=== PATIENT | female | born 2005 | race Caucasian/White ===

== ENCOUNTER 2025-06-18 14:39 | Outpatient (CLI) | payer BC, SELFPAY ==
--- NOTE | ~2025-06-18 | US_ITS ---
EXAMINATION: US OB <= 14 weeks fetus DATE: 06/18/2025 14:52 INDICATION: Uncertain dating of during first trimester TECHNIQUE: Real-time pelvic ultrasound utilizing both a transvaginal and transabdominal probe was performed. The interpreting radiologist was not present for the study. COMPARISON: None. FINDINGS: The uterus measures 9.9 x 6.8 x 8.0 cm. There is an intrauterine gestational sac. A yolk sac and pole are identified. The crown rump length measures 2.1 cm, which correlates with an estimated gestational age of 8 weeks and 5 days. heart motion is identified measuring 169 beats per minute (bpm) by M-mode Doppler. The bilateral ovaries are not visualized. There is no free fluid in the pelvis. IMPRESSION: 1. Single living fetus with heart rate of 169 bpm. 2. Gestational age by ultrasound of 8 weeks 5 day(s) +/- 5 day(s) with ultrasound estimated date of delivery (EUFEMIA) of 01/23/2026. Reviewed, dictated and finalized at location A. IMPRESSION: 1. Single living fetus with heart rate of 169 bpm. 2. Gestational age by ultrasound of 8 weeks 5 day(s) +/- 5 day(s) with ultraso und estimated date of delivery (EUFEMIA) of 01/23/2026.
== END 2025-06-18 14:40 | disposition home or self-care (01) ==
LOC: MICIMG 14:40
DX: Z36.87 Encounter for antenatal screening for uncertain dates (principal); Z3A.08 8 weeks gestation of pregnancy
CPT/HCPCS: 76801

== ENCOUNTER 2025-09-22 21:42 | Outpatient (CLI) | payer BC, SELFPAY ==
--- NOTE | 2025-09-22 21:42 | PC.NURSE ---
Pt arrives to unit with leaking started at 1900.
[2025-09-22 22:06] VITALS: BP 113/80; PULSE 89; RESP 18; TEMP 37.2; O2SAT 99
[2025-09-22 22:15] VITALS: BP 111/87; PULSE 92; O2SAT 100
--- NOTE | 2025-09-22 22:28 | PC.NURSE ---
Called Dr. Swenson, update on pt, leaking at 1900, intercourse prior to leaking, ROM plus negative, cramping, heart tones dopple, and two cramping on TOCO. Orders received to discharge pt with instructions to keep next scheduled appointment and when to return to the unit.
[2025-09-22 22:30] VITALS: BP 111/70; PULSE 84; O2SAT 99
--- OUTSIDE RECORDS SUMMARY | 2025-09-22 22:34 | XMS_ITS | Encounter Summary ---
Author Organization [facility] Address [address] [place] [address] Care Team Providers Care Self Pay Representative Name Role Phone Unavailable Primary Care Provider Unavailabl e Reason for Visit * Reason Onset Date Comments Appointment 09/22/2025 Encounter Details Date Type Department Care Team (Late st Contact Info) Description 09/22/[address] [address] Kaylene De La Fuente Appointment Social History Tobacco Use Types Packs/Day Years Used Date Smoking Tobacco: Never Assessed Estimated Date of Delivery Comme nts Yes 01/23/2026 Based on Ultraso und Sex and Gender Information Value Date Recorded Sex Assigned at Not on file Legal Sex Female 5:43 AM MECHANICAL RESEARCH ENGINEER Gender Identity Not on file Sexual Orientation Not on file documented as of this encounter Miscellaneous Notes * Telephone Encounter - Kaylene De La Fuente - 09/22/2025 10:45 AM CST Patient called, scheduled echo 10/12 @ 1:45 pm. Verified insurance and demographics. Instructions sent via [employer]. ANICAL RESEARCH ENGINEER documented in this encounter Plan of Treatment Upcoming Encounters Date Type Department Care Team (Late st Contact Info) Description 10/09/2025 2:30 PM MECHANICAL RESEARCH ENGINEER Appointment [facility] [address] [place], [place] [phone] 10/12/2025 1:45 PM MECHANICAL RESEARCH ENGINEER Appointment [address] [address] Maryann Swenson MD [address] [facility] [address] [place] [address] 10/12/2025 1:45 PM MECHANICAL RESEARCH ENGINEER Appointment [address] [address] documented as of this encounter Visit Diagnoses Not on filedocumented in this encounter
--- OUTSIDE RECORDS SUMMARY | 2025-09-22 22:34 | XMS_ITS | Encounter Summary ---
Author Organization [facility] Address [address] [facility] [place] [address] Care Team Providers Care Telecommunications Officer Name Role Phone Unavailable Primary Care Provider Unavailabl e Reason for Visit * Reason Onset Date Comments Future Appointment 09/21/2025 Encounter Details Date Type Department Care Team (Late st Contact Info) Description 09/21/[address] [address] Rosy Alberto RN Future Appointment Social History Tobacco Use Types Packs/Day Years Used Date Smoking Tobacco: Never Assessed Estimated Date of Delivery Comme nts Yes 01/23/2026 Based on Ultraso und Sex and Gender Information Value Date Recorded Sex Assigned at Not on file Legal Sex Female 5:43 AM WHITE KID BUFFER Gender Identity Not on file Sexual Orientation Not on file documented as of this encounter Miscellaneous Notes * Telephone Encounter - Rosy Alberto RN - 09/21/2025 2:26 PM CST Attempted to reach patient to schedule appointment for echocardiogram at [facility]. There was no answer. Will try again at a later date. E KID BUFFER documented in this encounter Plan of Treatment Upcoming Encounters Date Type Department Care Team (Late st Contact Info) Description 10/09/2025 2:30 PM WHITE KID BUFFER Appointment [facility] [address] [place] [id number] 10/12/2025 1:45 PM WHITE KID BUFFER Appointment [address] [address] Maryann Swenson MD [address] [facility] [address] [place] [address] 10/12/2025 1:45 PM WHITE KID BUFFER Appointment [address] [address] documented as of this encounter Visit Diagnoses Not on filedocumented in this encounter
--- OUTSIDE RECORDS SUMMARY | 2025-09-22 22:34 | XMS_ITS | Clinical Summary ---
Author Organization [facility] Address [address] [place] [address] Care Team Providers Care Special Crimes Investigator Name Role Phone Unavailable Primary Care Provider Unavailabl e Source Comments [facility],non-owned Affiliates and Associated Physician Practices is amultiple site organization consisting of ambulatory clinics and hospital sitesin [place], [place], [place] and [place]. This disclosure is being madepursuant to the Care Everywhere program and may not contain all information available regarding this patient. Last updated 18.[facility] Allergies No known active allergies Encounters Date Type Department Care Team Description 09/22/2025 Telephone [facility] [place] [address] [place] [phone] Kaylene De La Fuente Appointment 09/21/[address] [address] Rosy Alberto RN Future Appointment 09/07/2025 10:21 AM DIRECTOR FIXED INCOME - 09/07/2025 11:59 PM DIRECTOR FIXED INCOME Hospital Encounter formerly [facility] [address] [place] [phone] Julian Franklin MD Discharge Disposition: Home or Self Care from Last 3 Months Social History Tobacco Use Types Packs/Day Years Used Date Smoking Tobacco: Never Assessed Estimated Date of Delivery Comme nts Yes 01/23/2026 Based on Ultraso und Sex and Gender Information Value Date Recorded Sex Assigned at Not on file Legal Sex Female 5:43 AM DIRECTOR FIXED INCOME Gender Identity Not on file Sexual Orientation Not on file Plan of Treatment Upcoming Encounters Date Type Department Care Team (Late st Contact Info) Description 10/09/2025 2:30 PM DIRECTOR FIXED INCOME Appointment [facility] [address] [place] [address] 10/12/2025 1:45 PM DIRECTOR FIXED INCOME Appointment [facility] [place] [address] [place] [address] Maryann Swenson MD [address] [facility] [address] [place] [address] 10/12/2025 1:45 PM DIRECTOR FIXED INCOME Appointment [facility] [place] [facility] [place] [address] Health Maintenance Due Date Last Done Comments HPV VACCINE (1 - 3-dose series) 12/28/2019 CHLAMYDIA/GONORRHEA SCREENING 2020 MENINGOCOCCAL (Group B) VACCINE SHARED DECISION-MAKING (1 of 2 - Standard) 2020 HEPATITIS C SCREENING 12/23/2022 DTAP/TDAP/TD VACCINES (1 - Tdap) 12/28/2023 HEPATITIS B VACCINE (1 of 3 - 19+ 3-dose series) 12/28/2023 DEPRESSION SCREENING 10/22/2024 COVID-19 VACCINE (1 - 2024- season) 2025 INFLUENZA VACCINE (#1) 2025 3, 08/06/2018, 07/13/2017, Additional history exists OB-ONE HOUR GLUCOSE 10/17/2025 OB-TDAP CURRENT 10/24/2025 12/31/2015 ZOSTER VACCINE (1 of 2) 2054 HIV SCREENING Completed 07/10/2025 HIB VACCINE Aged Out No longer eligi ble based on patient's age to complete this topic MENINGOCOCCAL GROUPS A/C/Y/W VACCINE Aged Out No longer eligible based on patient's age to complete this topic PNEUMOCOCCAL VACCINE Aged Out No long er eligible based on patient's age to complete this topic Respiratory Syncytial Virus (RSV) Vaccine Pt: or over 60 yrs (No Doses Required) Completed Procedures Procedure Name Priority Date/Time Associated Diagnosis Comments SONOGRAM - COMPLETE Routine 09/07/2025 1 0:30 AM DIRECTOR FIXED INCOME Encounter for anatomic survey (HCC) Family history of congenital heart defect Encounter for supervision of normal first in second trimester ([facility]) from Last 3 Months Results * Sonogram - Complete (09/07/2025 10:30 AM DIRECTOR FIXED INCOME) Linked Results Indication ======== anatomy evaluation Family history of congenital heart defect FOB was born with hole in heart Depression complicating Maternal obesity complicating , class 1 (BMI 30.0 - 34.9) History ====== OB History 1. Para 0 Maternal Assessment Physical Exam Height 170 cm, 5 ft 7 in. Weight 102 kg, 225 lb. Initial weight 100 kg, 221 lb. BMI 35.24 kg/m . Initial BMI 34.61 kg/m . Weight gain 2 kg, 4 lb Method ====== Transabdominal and transvaginal ultrasound examination. View: Suboptimal view: limited by position ========= Francis . Number of fetuses: 1 Dating ====== Date Details Gest. age EUFEMIA Stated EUFEMIA 20 w + 2 d 01/23/2026 U/S 09/07/2025 based upon AC, BPD, Femur, HC 20 w + 3 d 01/22/2026 Assigned dating based on stated EUFEMIA, selected on 09/07/2025 20 w + 2 d 01/23/2026 General Evaluation Cardiac activity present. FHR 135 bpm. Presentation: breech Placenta: Placental site: posterior. Placental vayi-ch-qjmtazql os distance 21 mm. No previa seen Umbilical cord: Cord vessels: 3 vessel cord. Insertion site: normal insertion Amniotic fluid: Amount of AF: normal. MVP 4.7 cm Biometry BPD 46.2 mm 20w 0d 36% Hadlock HC 171.5 mm 19w 5d 19% Hadlock Cerebellum tr 20.7 mm 51% [place] Nuchal fold 3.8 mm AC 160.2 mm 21w 1d 72% Hadlock Femur 33.7 mm 20w 4d 52% Hadlock Humerus 32.4 mm 20w 6d 74% Maegan HC / AC 1.07 -/- 5% Hadlock Weight Calculation: EFW 373 g 69% Hadlock EFW (lb,oz) 0 lb 13 oz EFW by Hadlock ([id number]) Head / Face / Neck Biometry: CM 4.9 mm 44% Nicolaides appropriate Growth Overview Exam date GA BPD (mm) HC (mm) AC (mm) FL (mm) HL (mm) EFW (g) 09/07/2025 20w 2d 46.2 36% 171.5 19% 160.2 72% 33.7 52% 32.4 74% 373 69% Anatomy The following structures appear normal: Head / Neck Cranium. Lateral ventricles. Choroid plexus. Midline falx. Cavum septi pellucidi. Cerebellum. Cisterna magna. Thalami. Nuchal fold. Face Lips. Profile. Nose. Nasal bone. Orbits. Heart / Thorax Aortic arch view. Bicaval view. Ductal arch view. Abdomen Cord insertion. Stomach. Kidneys. Bladder. Bowel. Genitals. Spine Cervical spine. Thoracic spine. Lumbar spine. Sacral spine. Extremities / Skeleton Arms. Hands. Right leg. The following structures could not be adequately visualized: Heart / Thorax 4-chamber view. RVOT view. LVOT view. 3-vessel view. 9-[id number]-irgnync view. Situs. Great vessels. Right lung. Left lung. Diaphragm. Extremities / Skeleton Feet. Left leg. Maternal Structures Cervix reassuring Approach - Transvaginal: Cervical length 4.55 cm Funneling absent Cervical cerclage absent Right Ovary Not visualized Appearance: Adnexa appears normal Left Ovary Normal Impression ========= Single live intrauterine at 20w 2d The size is appropriate. The amniotic fluid volume is normal. The transvaginal cervical length is reassuring. Posterior placenta, not a previa. No major malformations were seen within the limitations of ultrasound. Comment ======== ultrasound alone cannot detect all structural, genetic, or functional , placental, or maternal abnormalities Follow-up ======== Follow up ultrasound in 4 weeks for growth and to complete anatomic survey echo order placed due to FOB's history of heart defect, as ordered by primary OB physician. Coding ====== Diagnoses O99.212, E66.811: Obesity complicating , class 1 (BMI 30.0 - 34.9) O99.342, F32.A: Other mental disorders complicating , childbirth, Depression O35.2XX0: Maternal care for (suspected) hereditary disease in fetus, not applicable or unspecified Z36.3: Encounter for screening for malformations Procedures 45100: US Preg Uterus Detailed 38796: US Preg Uterus Transvaginal Source Audio PACS Anatomical Region Laterality Modality Other 09/07/2025 10:3 0 AM DIRECTOR FIXED INCOME us Maryann Swenson MD [facility] ORDER[facility] Edited Resu lt - Final from Last 3 Months Insurance [facility]
--- OUTSIDE RECORDS SUMMARY | 2025-09-22 22:34 | XMS_ITS | Clinical Summary ---
Author Organization [facility] Address [address] [place] [phone] Phone Care Team Providers Care Grinding Wheel Facer Name Role Phone Shelley Perez MD Primary Care Provider [phone] Allergies No known active allergies Medications HYDROcodone-acet aminophen (HYCET) 2.5-108 mg/5 mL Solution Take 6.6 mL by mouth every 4 hours as needed for Pain, Moderate. 350 mL 0 12/18/2013 Active Active Problems No known active problems Social History Tobacco Use Types Packs/Day Years Used Date Smoking Tobacco: Never Assessed Comments Unknown Sex and Gender Information Value Date Recorded Sex Assigned at Not on file Legal Sex Female 11:17 AM DRILLING ENGINEERING MANAGER Gender Identity Not on file Sexual Orientation Not on file Last Filed Vital Signs Vital Sign Reading Time Taken Comments Blood Pressure 101/70 12/18/2013 6:10 PM DRILLING ENGINEERING MANAGER Pulse 99 12/18/2013 6:10 PM DRILLING ENGINEERING MANAGER Temperature 37.4 C (99.3 F) 12/18/2013 6:10 PM DRILLING ENGINEERING MANAGER Respiratory Rate 18 12/18/2013 6:10 PM DRILLING ENGINEERING MANAGER Oxygen Saturation 98% 12/18/2013 6:10 PM DRILLING ENGINEERING MANAGER Inhaled Oxygen Concentration - - Weight 33.1 kg (72 lb 15.6 oz) 12/18/2013 11:39 AM DRILLING ENGINEERING MANAGER Height - - Body Mass Index - - Plan of Treatment Health Maintenance Due Date Last Done Comments CHLAMYDIA SCREENING (ANNUAL) 11-24 YEARS 12/28/2015 HPV VACCINES (1 - 3-dose series) 12/28/2019 DTAP/TDAP/TD VACCINES (1 - Tdap) 12/28/2023 HEPATITIS B VACCINES (1 of 3 - 19+ 3-dose series) 05/2024 INFLUENZA VACCINE (#1) 2025 Insurance Advance Directives For more information, please contact: [phone] * Full Code (Latest Code Status on File) Date Activated Date Inactivated Comments 12/18/2013 12:05 PM 12/18/2013 8:23 PM Care Teams Grinding Wheel Facer Relationship Specialty Start Date End Date Shelley Perez MD PCP - General Pediatrics 12/16/13
--- OUTSIDE RECORDS SUMMARY | 2025-09-22 22:35 | XMS_ITS | Clinical Summary ---
Author Organization [facility] Address [address] [place] [address] Phone Care Team Providers Care Project Management Director Name Role Phone Maryann Swenson MD Unavailable [phone] Allergies No known active allergies Medications ondansetron (ZOFRAN) 4 MG Tablet Take 1-2 Tablets by mouth every 8 hours as needed for Nausea - 1st line. 10 Tablet 06/08/2025 Active Active Problems Estimated Date of Delivery Comme nts Yes 12/31/2025 No known active problems Encounters Date Type Department Care Team Description 07/10/2025 Travel from Last 3 Months Immunizations Immunization Administration Dates Next Due DTAP-IPV 06/01/2010 DTAP/HEPB/IPV Vaccine 07/13/2005,04/28/2005,02/19 Hepatitis A Vaccine,unspecified Formulation 05/22,03/08/2007 Hib Vaccine,unspecified Formulation 04/28/2005,0 02/28/2005 Human Papillomavirus (HPV) 9-valent Vaccine 06/23,12/31/2015 Influenza Vaccine Nasal 07/15/2013,09/21/2011 Influenza Vaccine, Quadrivalent, PF 07/19/2023,1 ,07/13/2017 MMRV 06/01/2010,02/09/2006 Meningococcal ACYW TT IM Vaccine 07/19/2023 Meningococcal MCV4O 12/31/2015 Pneumococcal Vaccine Peds - 7 Valent 07/13/2005, 04/28/2005,02/28/2005 TDAP Vaccine 12/31/2015 Social History Tobacco Use Types Packs/Day Years Used Date Smoking Tobacco: Never Smokeless Tobacco: Never Tobacco Cessation:Counseling Given: Not Answered Alcohol Use Standard Drinks/Week Comments Never 0 (1 standard drink = 0.6 oz pur e alcohol) AUDIT-C Answer Date Recorded Frequency of Alcohol Consumption Never 01/01/2019 Average Number of Drinks Not on file 019 Frequency of Binge Drinking Not on file 12/20 Estimated Date of Delivery Comme nts Yes 12/31/2025 Sex and Gender Information Value Date Recorded Sex Assigned at Not on file Legal Sex Female 7:07 PM CDT Gender Identity Not on file Sexual Orientation Not on file Last Filed Vital Signs Vital Sign Reading Time Taken Comments Blood Pressure 120/78 06/13/2025 8:34 AM CDT Pulse 80 06/13/2025 8:34 AM CDT Temperature 36.5 C (97.7 F) 06/13/2025 6:42 AM CDT Respiratory Rate 16 06/13/2025 6:42 AM CDT Oxygen Saturation 100% 06/13/2025 6:42 AM CDT Inhaled Oxygen Concentration - - Weight 101.2 kg (223 lb 1.7 oz) 06/13/2025 6:42 AM CDT Height 170.2 cm (5' 7) 06/13/2025 6:42 AM CDT Body Mass Index 34.94 06/13/2025 6:42 AM CDT Plan of Treatment Health Maintenance Due Date Last Done Comments Meningococcal B Immunization (1 of 2 - Standard) 2020 Influenza Immunization (#1) 06/22/202506/23, 08/06/2018, 07/13/2017, Additional history exists SARS-COV-2 Immunization ( - season) 2025 Respiratory Syncytial Virus (RSV) Immunization (Adult) (1 - Risk 1-dose series) 11/05/2025 DTaP/Tdap/Td Immunization (6 - Td or Tdap) 12/30/2025 12/31/2015, 06/01/2010, 07/13/2005, Additional history exists Hepatitis C Virus (HCV) Screening 07/10/2026 07/10/2025 Hepatitis B Immunization Completed 005, 04/28/2005, 02/28/2005 Pneumococcal Immunization Combined Aged Out 07/13/2005, 04/28/2005, 02/28/2005 No longer eligible based on patient's age to complete this topic Hepatitis A Immunization Discontinued 06/01/2010, 02/19 Measles Mumps Rubella (MMR) Immunization Discontinued 06/01/2010, 02/09/2006 Polio (IPV) Immunization Discontinued 010, 07/13/2005, 04/28/2005, Additional history exists Varicella Immunization Completed 06/01/2010, 2005 TdaP Immunization Discontinued 12/31/2015 Human Papillomavirus (HPV) Immunization Completed 07/13/2017, 12/31/2015 Meningococcal Immunization (ACWY) Completed 07/19/2023, 12/31/2015 Rotavirus Immunization Aged Out No lo nger eligible based on patient's age to complete this topic Procedures Procedure Name Priority Date/Time Associated Diagnosis Comments CBC WITH AUTO DIFFERENTIAL Routine 07/10/2025 3:28 PM CDT Encounter for screening of mother TYPE & SCREEN (CROSSMATCH CONVERTIBLE) Routine 07/10/2025 3:28 PM CDT Encounter for screening of mother HIV 1 & 2 ANTIBODY & ANTIGEN SCREEN Routine 07/10/2025 3:28 PM CDT Encounter for screening of mother COMPLETE BLOOD COUNT (CBC) WITH DIFF Routine 07/10/2025 3:28 PM CDT Encounter for screening of mother RPR SCREEN ONLY Routine 07/10/2025 3:28 PM CDT Encounter for screening of mother HEPATITIS B SURFACE ANTIGEN (HBSAG) Routine 07/10/2025 3:28 PM CDT Encounter for screening of mother RUBELLA IGG & IGM (INFECTION) Routine 07/10/2025 3:28 PM CDT Encounter for screening of mother HIV 1 & 2 ANTIBODY & ANTIGEN SCREEN PANEL Routine 07/10/2025 3:28 PM CDT Encounter for screening of mother HEPATITIS C ANTIBODY Routine 07/10/2025 3:28 PM CDT Encounter for screening of mother VITAMIN D, 25 HYDROXY TOTAL Routine 07/10/2025 3:28 PM CDT Encounter for screening of mother HEMOGLOBIN A1C W/ ESTIMATED GLUCOSE Routine 07/10/2025 3:28 PM CDT Encounter for screening of mother FERRITIN Routine 07/10/2025 3:28 PM CDT Encounter for screening of mother THYROID STIMULATING HORMONE (TSH) Routine 07/10/2025 3:28 PM CDT Encounter for screening of mother THYROXINE (T4) FREE Routine 07/10/2025 3 :28 PM CDT Encounter for screening of mother ERYTHROCYTE SEDIMENTATION RATE (ESR) Routine 07/10/2025 3:28 PM CDT Encounter for screening of mother from Last 3 Months Results * VITAMIN D, 25 HYDROXY TOTAL (07/10/2025 3:28 PM CDT) [facility] VITAMIN D, 25 HYDROX 29.1 ng/mL 07/10/2025 4:25 PM CDT [facility] Blood Venipuncture / Unknown 07/10/2025 3:28 PM CDT 07/10/2025 3:40 PM CDT Narrative [facility] - 07/10/2025 4:25 PM CDT Published reference ranges for Vitamin D vary depending on time and place and method of testing, and on patient's age, sex, ethnicity and levels of other measured analytes such as parathormone, calcium and phosphorus. The result should be evaluated in conjunction with clinical findings and suspicions. [place] [facility] Clinical Practice Guidelines: Status Vitamin D levels (ng/mL) Deficient <=20 At risk of inadequacy 21-29 Sufficient 30-100 Centers of Disease Control and Prevention Guidelines: Status Vitamin D levels (ng/mL) Deficient <13 At risk of inadequacy 13-19 Sufficient 20-50 Possibly harmful >50 References: [place] [employer] [facility], 2010 Dietary reference intakes for calcium and vitamin D. [place]: The National Academies Press. Rohini M, Toan N, James CASTELLON, et al., Evaluation, treatment, and prevention of Vitamin D deficiency: an Endocrinology Clinical Practice Guideline. JCEM 2011 96: 7 5871-8131. Nas A, Isidoro C, Alex D, et al., Vitamin D Status: [place], , [facility] data brief, no. [phone], MD [place]: [facility] for Health Statistics. 2011. us Not On File Provider CHEMISTRY ORDERABLES Final Result [facility] [address] [place] [address] * HIV 1 & 2 ANTIBODY & ANTIGEN SCREEN (07/10/2025 3:28 PM CDT) Pathologist [facility] HIV 1 & 2 ANTIBODY & ANTIGEN SCREEN NON DETECTED NON DETECTED 07/10/2025 9:52 PM CDT [facility] Blood Venipuncture / Unknown 07/10/2025 3:28 PM CDT 07/10/2025 3:40 PM CDT us Not On File Provider CHEMISTRY ORDERABLES Final Result [facility] [address] [place] [address], * HEMOGLOBIN A1C W/ ESTIMATED GLUCOSE (07/10/2025 3:28 PM CDT) Pathologist [facility] HGB-A1C 4.8 4.0 - 6.0 % 07/10/2025 3:59 PM CDT [facility] Est Average Glucose 91.1 mg/dL 07/10/2025 3:59 PM CDT [facility] Blood Venipuncture / Unknown 07/10/2025 3:28 PM CDT 07/10/2025 3:40 PM CDT Narrative [facility] - 07/10/2025 3:59 PM CDT HEMOGLOBIN A1C: DIABETIC PATIENTS: WELL-CONTROLLED: 6.2 - 7.0 INTERMEDIATE WELL-CONTROLLED: 7.0 - 9.0 POORLY-CONTROLLED: >9.0 Specimens containing greater than 5% of Hemoglobin F may result in lower than expected % HbA1C results. us Not On File Provider CHEMISTRY ORDERABLES Final Result [facility] [address] [place] [address] * (ABNORMAL) CBC WITH AUTO DIFFERENTIAL (07/10/2025 3:28 PM CDT) WBC 9.85 4.00 - 12.00 10(3)/mcL 07/10/2025 3:44 PM CDT [facility] RBC 4.43 3.80 - 5.30 10(6)/mcL 07/10/2025 3:44 PM CDT [facility] HEMOGLOBIN (HGB) 13.6 12.0 - 15.8 g/dL 07/10/2025 3:44 PM CDT [facility] HEMATOCRIT (HCT) 38.3 36.0 - 47.0 % 07/10/2025 3:44 PM CDT [facility] MCV 86.5 82.0 - 96.0 fL 07/10/2025 3:44 PM CDT [facility] MCH 30.7 26.0 - 34.0 pg 07/10/2025 3:44 PM CDT [facility] MCHC 35.5 31.0 - 36.0 g/dL 07/10/2025 3:44 PM CDT [facility] PLATELET COUNT 242 140 - 440 10(3)/mcL 07/10/2025 3:44 PM CDT [facility] RDW 11.8 11.8 - 15.5 % 07/10/2025 3:44 PM CDT [facility] MPV 9.4(L) 9.7 - 12.4 fL 07/10/2025 3:44 PM CDT [facility] NEUTROPHILS 74.5(H) 47.0 - 73.0 % 07/10/2025 3:44 PM CDT [facility] LYMPHOCYTES 19.5 18.0 - 42.0 % 07/10/2025 3:44 PM CDT [facility] MONOCYTES 4.3 4.0 - 12.0 % 07/10/2025 3:44 PM CDT [facility] EOSINOPHILS 1.0 0.0 - 5.0 % 07/10/2025 3:44 PM CDT [facility] BASOPHILS 0.2 0.0 - 1.0 % 07/10/2025 3:44 PM CDT [facility] IMMATURE GRANULOCYTE 0.5(H) 0.0 - 0.4 % 07/10/2025 3:44 PM CDT [facility] Comment:Immature Granulocyte s includes Metamyelocytes, Myelocytes, and Promyelocytes. ABSOLUTE NEUTROPHILS 7.34 1.60 - 7.70 10(3)/[facility] 07/10/2025 3:44 PM CDT [facility] ABSOLUTE LYMPHOCYTES 1.92 1.30 - 3.20 10(3)/[facility] 07/10/2025 3:44 PM CDT [facility] ABSOLUTE MONOCYTES 0.42 0.20 - 1.00 10(3)/[facility] 07/10/2025 3:44 PM CDT [facility] ABSOLUTE EOSINOPHIL 0.10 0.00 - 0.40 10(3)/[facility] 07/10/2025 3:44 PM CDT [facility] ABSOLUTE BASOPHILS 0.02 0.00 - 0.10 10(3)/[facility] 07/10/2025 3:44 PM CDT [facility] ABSOLUTE IMMATURE GRANULOCYTE 0.05(H) 0.00 - 0.03 10 (3) mcL. 07/10/2025 3:44 PM CDT [facility] NRBC PER 100 WBC 0 07/10/20 3:44 PM CDT [facility] Blood Venipuncture / Unknown 07/10/2025 3:28 PM CDT 07/10/2025 3:40 PM CDT us Not On File Provider HEMATOLOGY ORDERABLES Final Result [facility] [address] [place] [address] * TYPE & SCREEN (CROSSMATCH CONVERTIBLE) (07/10/2025 3:28 PM CDT) ABO TYPING A 07/10/2025 4:49 PM CDT [facility]OD [facility] RH Negative 07/10/2025 4:49 PM CDT [facility]OD [facility] ABSC Negative 07/10/2025 4:49 PM CDT [facility] Blood Venipuncture / Unknown 07/10/2025 3:28 PM CDT 07/10/2025 3:53 PM CDT us Not On File Provider BLOOD BANK ORDERABLES Edite d Result - Final Performing Organization Address City/[facility]/ZIP Co de Phone Number [facility]OD [facility] [address] [place] [address] * THYROXINE (T4) FREE (07/10/2025 3:28 PM CDT) T4 FREE 1.0 0.7 - 1.9 ng/dL 07/10/2025 4:24 PM CDT [facility] Blood Venipuncture / Unknown 07/10/2025 3:28 PM CDT 07/10/2025 3:39 PM CDT us Not On File Provider CHEMISTRY ORDERABLES Final Result [facility] [address] [place] [address] * THYROID STIMULATING HORMONE (TSH) (07/10/2025 3:28 PM CDT) [facility] TSH 2.044 0.300 - 5.000 mIU/L 07/10/2025 4:24 PM CDT [facility] Blood Venipuncture / Unknown 07/10/2025 3:28 PM CDT 07/10/2025 3:39 PM CDT us Not On File Provider CHEMISTRY ORDERABLES Final Result Performing Organization Address City/[facility] Co de Phone Number [facility] [address] [place] [address] * ERYTHROCYTE SEDIMENTATION RATE (ESR) (07/10/2025 3:28 PM CDT) [facility] ESR (SED RATE, ERYTHROCYTE SEDIMENTATION RATE) 12 <20 mm/h 07/10/2025 3:45 PM CDT [facility] Comment: Patients presenting with increased level of fibrinogen, gamma globulins, or abnormally shaped RBCs could affect the results for the erythrocyte sedimentation rate (ESR). Results should be clinically correlated. Blood Venipuncture / Unknown 07/10/2025 3:28 PM CDT 07/10/2025 3:40 PM CDT us Not On File Provider HEMATOLOGY ORDERABLES Final Result Performing Organization Address [facility] Co de Phone Number [facility] [address] [place] [address] * RUBELLA IGG & IGM (INFECTION) (07/10/2025 3:28 PM CDT) [facility] RUBELLA IGM <0.2 <1.1 AI 07/10/2025 9:49 PM CDT [facility] Comment: <0.8 Negative. No detectable Rubella IgM antibody. 0.9-1.0 Equivocal >= 1.1 Positive Without a history of exposure to rubella or symptoms consistent with rubella, the rubella IgM result is difficult to interpret. False-positive serum rubella IgM tests may occur due to the cross reaction with rheumatoid factor or other viral infections. Rubella IgM may also persist for more than 12 months after vaccination or natural infection. Avidity testing and detection of wild-type rubella virus can be used to resolve uncertainties in the serological evaluation of suspected cases. For a serological diagnosis of congenital rubella in the period, antibody to rubella virus should be measured in both infant and maternal sera. If IgM is detected in a infant's serum, it is probable that transplacental rubella infection has occurred. Antibody testing was performed by multiplex flow immunoassay on the [employer] platform. RUBELLA IMMUNITY Immune Immune, Invalid 07/10/2025 9:49 PM CDT [facility] Comment:Antibody testing was performed by multiplex flow immunoassay on the [employer] platform. Blood Venipuncture / Unknown 07/10/2025 3:28 PM CDT 07/10/2025 3:40 PM CDT us Not On File Provider CHEMISTRY ORDERABLES Final Result Performing Organization Address City/[facility] Co de Phone Number [facility] [address] [place] [address], [place] * RPR SCREEN ONLY (07/10/2025 3:28 PM CDT) RPR NONREACTIVE NONREACTIVE 07/11/2025 9:02 AM CDT [facility] Blood Venipuncture / Unknown 07/10/2025 3:28 PM CDT 07/10/2025 3:40 PM CDT us Not On File Provider IMMUNOLOGY ORDERABLES Final Result Performing Organization Address City/[facility] Co de Phone Number [facility] [address] [place] [address], [place] * HEPATITIS C ANTIBODY (07/10/2025 3:28 PM CDT) hepatitis C antibody 0.10 <1 S/CO 07/10/2025 9:23 PM CDT [facility] Comment: Signal/Cutoff ratio < 0.79 is Nondetected Signal/Cutoff ratio 0.80-0.99 is Grayzone Signal/Cutoff ratio > 0.99 is Detected Supplemental assays are recommended if signal/cutoff ratio is >/=1.00. Signal/cutoff ratio result >/= 5.00 is 97% predictive of positivity for recombinant immunoblot assay (RIBA) and will be reported to the [place] Department of Public [facility] as required. Blood Venipuncture / Unknown 07/10/2025 3:28 PM CDT 07/10/2025 3:39 PM CDT us Not On File Provider CHEMISTRY ORDERABLES Final Result Performing Organization Address City/[facility]/ZIP Co de Phone Number [facility] [address] [place] [address], * HEPATITIS B SURFACE ANTIGEN (HBSAG) (07/10/2025 3:28 PM CDT) [facility] HEPATITIS B SURFACE ANTIGEN NON DETECTED NON DETECTED 07/10/2025 4:25 PM CDT [facility] Comment:A nonreactive test r esult does not exclude the possibility of exposure to or infection with Hepatitis B virus. A nonreactive test result in individuals with prior exposure to hepatitis B may be due to antigen levels below the detection limit of this assay or lack of antigen reactivity to the antibodies in this assay. Blood Venipuncture / Unknown 07/10/2025 3:28 PM CDT 07/10/2025 3:40 PM CDT us Not On File Provider CHEMISTRY ORDERABLES Final Result Performing Organization Address City/[facility]/ZIP Co de Phone Number [facility] [address] [place] [address] * FERRITIN (07/10/2025 3:28 PM CDT) Pathologist [facility] FERRITIN 63 5 - 204 ng/mL 07/10/2025 4:24 PM CDT [facility] Blood Venipuncture / Unknown 07/10/2025 3:28 PM CDT 07/10/2025 3:39 PM CDT us Not On File Provider CHEMISTRY ORDERABLES Final Result [facility] [address] [place] [address] from Last 3 Months Insurance Swag Of [employer] Month [place] [employer] [place] Care Teams Project Management Director Relationship Specialty Start Date End Date Maryann Swenson MD [address]22 [address] [address] Obstetrics & Gynecology 07/10/25
[2025-09-22 22:43] LABS: OBXCEM ROM Plus Negative (Negative)
--- NOTE | 2025-09-22 22:43 | PC.NURSE ---
Pt discharged with instructions to keep next scheduled appointment and when to return to the unit, pt verbalizes understanding.
== END 2025-09-22 22:43 | disposition home or self-care (01) ==
LOC: ANHOBOP 22:33 → ANHOBPP 22:35
PROVIDERS: Visit Provider Obstetrics & Gynecology Gynecology
DX: O41.8X90 Other specified disorders of amniotic fluid and membranes, unspecified trimester, not applicable or unspecified (principal); Z3A.00 Weeks of gestation of pregnancy not specified
CPT/HCPCS: 84112; 99199